=== PATIENT | female | born 1990 | race Hispanic/Latino ===

== ENCOUNTER 2019-12-04 14:12 | Emergency (ER) | payer MEDICARE ==
[2019-12-04 15:16] LABS: BASOPHILS % (AUTO) 0.3 % (0.0-5.0); HEMATOCRIT 34.7 % (36-48); LYMPHOCYTES % (AUTO) 14.3 % (21.0-51.0); MEAN CORPUSCULAR HEMOGLOBIN 36.2 pg (27.0-33.0); MEAN CORPUSCULAR HGB CONC 35.4 g/dL (32.0-36.0); MEAN CORPUSCULAR VOLUME 102.1 fL (79-99); MONOCYTES % (AUTO) 3.1 % (3.0-13.0); PLATELET COUNT (AUTO) 111 K/uL (130-400); RED CELL DISTRIBUTION WIDTH 11.4 % (11.0-15.5); WHITE BLOOD COUNT (AUTO) 6.2 K/uL (4.8-10.8)
[2019-12-04 15:29] LABS: CREATININE 0.7 mg/dL (0.5-1.5); POTASSIUM 3.1 mmol/L (3.5-5.1)
[2019-12-04 15:33] LABS: ALBUMIN 3.3 g/dL (3.5-5.0); BILIRUBIN,TOTAL 0.3 mg/dL (0.2-1.0); TOTAL PROTEIN, SERUM 7.5 g/dL (6.0-8.3)
[2019-12-04 16:22] LABS: APPEARANCE,URINE Clear (CLEAR); BILIRUBIN,URINE Negative (NEGATIVE); COLOR,URINE Yellow (YELLOW); GLUCOSE, URINE (UA) Negative (NEGATIVE); KETONES,URINE Negative (NEGATIVE); LEUKOCYTE ESTERASE ,URINE Negative (NEGATIVE); NITRATE,URINE Negative (NEGATIVE); OCCULT BLOOD,URINE Moderate (NEGATIVE); PH,URINE 5.5 (5.0-8.0); PROTEIN,URINE Negative (NEGATIVE); UROBILINOGEN,URINE 0.2 mg/dL (0.2-1.0)
[2019-12-04 16:25] LABS: HCG,QUAL RESULT NEGATIVE (NEGATIVE)
[2019-12-04] MEDS ORDERED: IBUPROFEN 600 MG TABLET ONE (16:37)
[2019-12-04 16:39] LABS: BACTERIA,URINE Rare /HPF (None Seen); WBC,URINE 0-1 /HPF (0-1)
[2019-12-04 16:40] LABS: SQUAMOUS EPITHELIAL CELL,UR Rare /HPF (0-2)
[2019-12-04] MEDS ORDERED: POTASSIUM BICARB/CIT AC 25 MEQ TABLET.EFF ONE (17:12)
[2019-12-04] MEDS ORDERED: DOXYCYCLINE HYCLATE 100 MG TABLET PO ONE (19:06)
== END 2019-12-04 19:24 | disposition home or self-care (01) ==
LOC: EDH 14:12
DX: E87.6 Hypokalemia (principal); R50.9 Fever, unspecified; R05 Cough; E86.0 Dehydration; Z20.828 Contact with and (suspected) exposure to other viral communicable diseases; F31.9 Bipolar disorder, unspecified; Z72.0 Tobacco use
CPT/HCPCS: 36415; 71045; 80053; 81001; 81025; 85025; 86757; 87426; 87804 ×2; 96360; 99284; J7030; U0003

== ENCOUNTER 2021-09-16 11:00 | Emergency (ER) | payer MEDICARE ==
[~2021-09-16] VITALS: Ht 149.9 cm; Wt 68.0 kg
[2021-09-16 11:02] VITALS: BP 126/68
[2021-09-16] MEDS ORDERED: CORTSOL AD (12:39)
[2021-09-16] MEDS ORDERED: IBUP-2070 PO (12:39)
[2021-09-16] MEDS ORDERED: IBUPROFEN 600 MG TABLET PO ONE (13:00)
== END 2021-09-16 12:49 | disposition home or self-care (01) ==
LOC: EDH 11:00
DX: H60.91 Unspecified otitis externa, right ear (principal); F32.A Depression, unspecified; E03.9 Hypothyroidism, unspecified; F41.9 Anxiety disorder, unspecified

== ENCOUNTER 2021-10-04 22:20 | Emergency (ER) | payer MEDICARE ==
[~2021-10-04] VITALS: Ht 149.9 cm; Wt 70.8 kg
[~2021-10-04 22:20] MED LIST: CORTSOL AD; IBUP-2070 PO
[2021-10-04 22:38] LABS: BASOPHILS % (AUTO) 0.3 % (0.0-5.0); EOSINOPHILS % (AUTO) 0.4 % (0.0-8.0); HEMATOCRIT 34.3 % (36-48); LYMPHOCYTES % (AUTO) 30.8 % (21.0-51.0); MEAN CORPUSCULAR HEMOGLOBIN 36.8 pg (27.0-33.0); MEAN CORPUSCULAR HGB CONC 36.2 g/dL (32.0-36.0); MEAN CORPUSCULAR VOLUME 101.8 fL (79-99); MONOCYTES % (AUTO) 7.5 % (3.0-13.0); NEUTROPHILS % (AUTO) 60.6 % (40.0-77.0); PLATELET COUNT (AUTO) 186 K/uL (130-400); RED BLOOD CELL COUNT(AUTO) 3.37 MIL/uL (4.00-5.50); RED CELL DISTRIBUTION WIDTH 11.9 % (11.0-15.5); WHITE BLOOD COUNT (AUTO) 9.1 K/uL (4.8-10.8)
[2021-10-04 22:52] LABS: CARBON DIOXIDE 21 mmol/L (21-32); CHLORIDE 103 mmol/L (101-111); CREATININE 0.6 mg/dL (0.5-1.5); GLOMERULAR FILTR. RATE CALC 122 mL/min (>60); GLUCOSE,RANDOM 86 mg/dL (70-105); POTASSIUM 3.2 mmol/L (3.5-5.1); SODIUM SERUM 135 mmol/L (136-145); UREA NITROGEN, BLOOD 8 mg/dL (7-18)
[2021-10-04 22:54] LABS: ACETAMINOPHEN 4 mcg/mL (10-30); ALANINE AMINOTRANSFERASE 13 U/L (12-78); ALBUMIN 3.8 g/dL (3.5-5.0); ALCOHOL, BLOOD < 3 mg/dL (0-10); ASPARTATE AMINOTRANSFERASE 13 U/L (10-37); TOTAL PROTEIN, SERUM 7.6 g/dL (6.0-8.3)
[2021-10-04 23:01] LABS: BILIRUBIN,URINE SMALL (NEGATIVE); COLOR,URINE YELLOW (YELLOW); GLUCOSE, URINE (UA) NEGATIVE (NEGATIVE); KETONES,URINE 15 mg/dL (NEGATIVE); LEUKOCYTE ESTERASE ,URINE NEGATIVE (NEGATIVE); NITRATE,URINE NEGATIVE (NEGATIVE); OCCULT BLOOD,URINE MODERATE (NEGATIVE); PROTEIN,URINE NEGATIVE (NEGATIVE); UROBILINOGEN,URINE 0.2 mg/dL (0.2-1.0)
[2021-10-04 23:05] LABS: APPEARANCE,URINE HAZY (CLEAR)
[2021-10-04 23:06] LABS: WBC,URINE 0-1 /HPF (0-1)
[2021-10-04 23:07] LABS: BACTERIA,URINE Few /HPF (None Seen); CALCIUM OXALATE CRYSTALS,UR Moderate /LPF (None Seen); MUCUS,URINE Few LPF (None Seen)
[2021-10-04 23:09] LABS: AMPHET/METH SCREEN,URINE NEGATIVE (NEGATIVE); BARBITURATE SCREEN, URINE NEGATIVE (NEGATIVE); BENZODIAZEPINES SCREEN,URINE NEGATIVE (NEGATIVE); CANNABINOID SCREEN,URINE POSITIVE (NEGATIVE); COCAINE SCREEN,URINE NEGATIVE (NEGATIVE); OPIATE SCREEN,URINE NEGATIVE (NEGATIVE); PHENCYCLIDINE SCREEN,URINE NEGATIVE (NEGATIVE)
[2021-10-05 02:02] VITALS: BP 128/72
== END 2021-10-05 02:18 | disposition home or self-care (01) ==
LOC: EDH 22:20
DX: F32.9 Major depressive disorder, single episode, unspecified (principal); F17.210 Nicotine dependence, cigarettes, uncomplicated; Z79.1 Long term (current) use of non-steroidal anti-inflammatories (NSAID)
CPT/HCPCS: 99283; 80053; 80305; 84703; 85025; 81001; 36415; G0481

== ENCOUNTER 2022-05-21 18:02 | Emergency (ER) | payer MEDICARE ==
[~2022-05-21] VITALS: Ht 149.9 cm; Wt 77.1 kg
[2022-05-21 18:30] VITALS: BP 146/84
== END 2022-05-21 20:46 | disposition left against medical advice (07) ==
LOC: EDH 18:02
DX: R10.2 Pelvic and perineal pain (principal); Z53.21 Procedure and treatment not carried out due to patient leaving prior to being seen by health care provider
CPT/HCPCS: 99281

== ENCOUNTER 2022-10-11 14:54 | Emergency (ER) | payer MEDICARE ==
[~2022-10-11] VITALS: Ht 152.4 cm; Wt 72.6 kg
[2022-10-11 15:32] LABS: BASOPHILS # (AUTO) 0.03 K/uL (0.00-0.20); BASOPHILS % (AUTO) 0.3 % (0.0-5.0); EOSINOPHILS # (AUTO) 0.02 K/uL (0.00-0.70); EOSINOPHILS % (AUTO) 0.2 % (0.0-8.0); HEMATOCRIT 37.6 % (36-48); IMMATURE GRANULOCYTE ABSOLUTE 0.05 K/uL (0-1); LYMPHOCYTES % (AUTO) 19.4 % (21.0-51.0); MEAN CORPUSCULAR HEMOGLOBIN 36.6 pg (27.0-33.0); MEAN CORPUSCULAR HGB CONC 36.4 g/dL (32.0-36.0); MEAN CORPUSCULAR VOLUME 100.5 fL (79-99); MONOCYTES # (AUTO) 0.9 K/uL (0.1-1.0); MONOCYTES % (AUTO) 8.3 % (3.0-13.0); NEUTROPHILS # (AUTO) 7.4 K/uL (1.8-7.7); NEUTROPHILS % (AUTO) 71.3 % (40.0-77.0); PLATELET COUNT (AUTO) 231 K/uL (130-400); RED BLOOD CELL COUNT(AUTO) 3.74 MIL/uL (4.00-5.50); WHITE BLOOD COUNT (AUTO) 10.3 K/uL (4.8-10.8)
[2022-10-11 15:47] LABS: BILIRUBIN,TOTAL 0.4 mg/dL (0.2-1.0); CREATININE 0.8 mg/dL (0.5-1.5)
[2022-10-11 15:48] LABS: ALBUMIN 4.2 g/dL (3.5-5.0); TOTAL PROTEIN, SERUM 8.1 g/dL (6.0-8.3)
[2022-10-11 16:15] LABS: POTASSIUM 3.3 mmol/L (3.5-5.1)
[2022-10-11] MEDS ORDERED: ACETAMINOPHEN 500 MG TABLET PO ONE (16:30)
[2022-10-11] MEDS ORDERED: LACTATED RINGERS 1000ML 1,000 ML IV ONE (16:30)
[2022-10-11 19:14] VITALS: BP 118/75; PULSE 76; RESP 18; O2SAT 99
== END 2022-10-11 19:15 | disposition home or self-care (01) ==
LOC: EDH 14:54
DX: R51.9 Headache, unspecified (principal); E03.9 Hypothyroidism, unspecified; X30.XXXA Exposure to excessive natural heat, initial encounter; Y93.G3 Activity, cooking and baking; Y92.89 Other specified places as the place of occurrence of the external cause; Y99.8 Other external cause status
CPT/HCPCS: 99284; 96360; 70450; 82550; 80053; 84703; 85025; 36415; J7120; 96361

== ENCOUNTER 2023-07-16 16:17 | Emergency (ER) | payer MEDICARE ==
[~2023-07-16] VITALS: Ht 149.9 cm; Wt 71.2 kg
[2023-07-16] MEDS: MORPHINE 2 MG SYG IVP STA (17:03)
[2023-07-16] MEDS: ONDANSETRON 4MG INJ IVP STA (17:03)
[2023-07-16 17:04] LABS: BASOPHILS # (AUTO) 0.04 K/uL (0.00-0.20); BASOPHILS % (AUTO) 0.6 % (0.0-5.0); EOSINOPHILS # (AUTO) 0.06 K/uL (0.00-0.70); EOSINOPHILS % (AUTO) 0.9 % (0.0-8.0); IMMATURE GRANULOCYTE ABSOLUTE 0.08 K/uL (0-1); LYMPHOCYTES # (AUTO) 1.9 K/uL (1.0-4.8); LYMPHOCYTES % (AUTO) 27.2 % (21.0-51.0); MEAN CORPUSCULAR HEMOGLOBIN 37.9 pg (27.0-33.0); MEAN CORPUSCULAR HGB CONC 36.6 g/dL (32.0-36.0); MEAN CORPUSCULAR VOLUME 103.5 fL (79-99); MONOCYTES # (AUTO) 0.6 K/uL (0.1-1.0); NEUTROPHILS # (AUTO) 4.3 K/uL (1.8-7.7); NEUTROPHILS % (AUTO) 62.2 % (40.0-77.0); PLATELET COUNT (AUTO) 191 K/uL (130-400); RED BLOOD CELL COUNT(AUTO) 3.67 MIL/uL (4.00-5.50); RED CELL DISTRIBUTION WIDTH 12.4 % (11.0-15.5)
[2023-07-16 17:09] LABS: APPEARANCE,URINE CLEAR (CLEAR); BILIRUBIN,URINE NEGATIVE (NEGATIVE); COLOR,URINE COLORLESS (YELLOW); GLUCOSE, URINE (UA) NEGATIVE (NEGATIVE); KETONES,URINE NEGATIVE (NEGATIVE); LEUKOCYTE ESTERASE ,URINE NEGATIVE Leu/uL (NEGATIVE); NITRATE,URINE NEGATIVE (NEGATIVE); OCCULT BLOOD,URINE SMALL (NEGATIVE); PROTEIN,URINE NEGATIVE (NEGATIVE); UROBILINOGEN,URINE 0.2 mg/dL (0.2-1.0)
[2023-07-16 17:11] VITALS: BP 128/72; PULSE 90; RESP 16; O2SAT 100
[2023-07-16 17:12] LABS: ADD UA MICROSCOPIC YES
[2023-07-16 17:21] LABS: BACTERIA,URINE Few /HPF (None Seen); RBC,URINE 0-1 /HPF (0-1); RED BLOOD CELL CLUMP None Seen /HPF; WBC CLUMP None Seen /HPF (0-1)
[2023-07-16 17:39] LABS: ALBUMIN 3.5 g/dL (3.5-5.0); BILIRUBIN,TOTAL 0.3 mg/dL (0.2-1.0); CREATININE 0.6 mg/dL (0.5-1.0); TOTAL PROTEIN, SERUM 7.3 g/dL (6.0-8.3)
[2023-07-16 17:40] LABS: POTASSIUM 4.2 mmol/L (3.5-5.1)
[2023-07-16 17:44] LABS: COVID19 (SARS ANTIGEN RAPID) PRESUMPTIVE NEGATIVE (NEGATIVE)
[2023-07-16 17:47] LABS: INFLUENZA TYPE A NEGATIVE FOR TYPE A (NEG); INFLUENZA TYPE B NEGATIVE FOR TYPE B (NEG)
[2023-07-16] MEDS: 0.9%NACL 1000ML 1,000 ML IV SCH (17:56)
[2023-07-16] MEDS ORDERED: IBUP-2077 PO (18:04)
[2023-07-16] MEDS ORDERED: SULF1TAB42 PO (18:04)
== END 2023-07-16 18:51 | disposition home or self-care (01) ==
LOC: EDH 16:17
DX: N39.0 Urinary tract infection, site not specified (principal); E03.9 Hypothyroidism, unspecified; Z20.822 Contact with and (suspected) exposure to COVID-19; Z79.899 Other long term (current) drug therapy
CPT/HCPCS: 99285; 96374; 71045; 96375; 87426; 84484; 80053; 84702; 83690; 85025; 87804 ×2; 81001; 36415; 93005; J2270; J7030; J2405

== ENCOUNTER 2023-11-17 15:07 | Emergency (ER) | payer OTHER, MEDICARE ==
[~2023-11-17] VITALS: Ht 152.4 cm; Wt 68.5 kg
[~2023-11-17 15:07] MED LIST changes: +IBUP-2077 PO; +SULF1TAB42 PO
[2023-11-17 16:24] LABS: BASOPHILS # (AUTO) 0.05 K/uL (0.00-0.20); BASOPHILS % (AUTO) 0.5 % (0.0-5.0); EOSINOPHILS # (AUTO) 0.17 K/uL (0.00-0.70); EOSINOPHILS % (AUTO) 1.8 % (0.0-8.0); HEMATOCRIT 36.3 % (36-48); IMMATURE GRANULOCYTE ABSOLUTE 0.04 K/uL (0-1); LYMPHOCYTES # (AUTO) 2.2 K/uL (1.0-4.8); LYMPHOCYTES % (AUTO) 23.8 % (21.0-51.0); MEAN CORPUSCULAR HEMOGLOBIN 36.9 pg (27.0-33.0); MEAN CORPUSCULAR HGB CONC 36.1 g/dL (32.0-36.0); MEAN CORPUSCULAR VOLUME 102.3 fL (79-99); MONOCYTES # (AUTO) 0.8 K/uL (0.1-1.0); MONOCYTES % (AUTO) 8.3 % (3.0-13.0); NEUTROPHILS % (AUTO) 65.2 % (40.0-77.0); PLATELET COUNT (AUTO) 217 K/uL (130-400); RED BLOOD CELL COUNT(AUTO) 3.55 MIL/uL (4.00-5.50); RED CELL DISTRIBUTION WIDTH 11.7 % (11.0-15.5); WHITE BLOOD COUNT (AUTO) 9.3 K/uL (4.8-10.8)
[2023-11-17 16:33] LABS: CREATININE 0.7 mg/dL (0.5-1.0); POTASSIUM 3.5 mmol/L (3.5-5.1)
[2023-11-17] MEDS ORDERED: LIDO28CR2 TP (16:50)
[2023-11-17 17:18] VITALS: BP 154/69; PULSE 85; RESP 16; TEMP 97.8; O2SAT 97
== END 2023-11-17 17:19 | disposition home or self-care (01) ==
LOC: EDH 15:07
DX: K64.4 Residual hemorrhoidal skin tags (principal); E03.9 Hypothyroidism, unspecified; F31.9 Bipolar disorder, unspecified; F41.9 Anxiety disorder, unspecified
CPT/HCPCS: 36415; 80048; 85025

== ENCOUNTER 2024-03-02 09:28 | Emergency (ER) | payer OTHER, MEDICARE ==
[~2024-03-02] VITALS: Ht 149.9 cm; Wt 70.3 kg
[~2024-03-02 09:28] MED LIST changes: +LIDO28CR2 TP
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
[2024-03-02] MEDS ORDERED: LIDOCAINE HCL 1% 20 ML VIAL INJ SCH (10:30)
--- NOTE | 2024-03-02 10:30 | HMCIMG ---
KNEE 3VWS RT HISTORY: Right knee injury COMPARISON: None TECHNIQUE: 4 images of right knee were obtained. FINDINGS: There is no acute displaced fracture or dislocation. IMPRESSION: 1. Findings as described above.
[2024-03-02] MEDS: NEOMY SULF/BACITRA/POLYMYXIN B 1 EACH PACKET TP ONE (10:33)
[2024-03-02] MEDS: ibuPROFEN 800 MG TAB PO ONE (10:33)
[2024-03-02] MEDS: LIDOCAINE HCL 1% 20 ML VIAL INJ SCH (10:47)
[2024-03-02 10:49] VITALS: BP 125/72; PULSE 90; RESP 16; TEMP 98.8; O2SAT 99
[2024-03-02] MEDS ORDERED: IBUP-2077 PO (10:53)
== END 2024-03-02 11:25 | disposition home or self-care (01) ==
LOC: EDH 09:28
DX: S91.342A Puncture wound with foreign body, left foot, initial encounter (principal); S83.8X1A Sprain of other specified parts of right knee, initial encounter; E03.9 Hypothyroidism, unspecified; F31.9 Bipolar disorder, unspecified; Z79.899 Other long term (current) drug therapy; X58.XXXA Exposure to other specified factors, initial encounter; Y93.89 Activity, other specified; Y92.89 Other specified places as the place of occurrence of the external cause; Y99.8 Other external cause status
CPT/HCPCS: 73562; 99284

== ENCOUNTER 2024-07-29 14:48 | Emergency (ER) | payer MEDICARE ==
[~2024-07-29] VITALS: Ht 152.4 cm; Wt 68.0 kg
--- NOTE | 2024-07-29 15:44 | HMCIMG ---
Exam Type: US PELVIC NON-OB COMP Clinical Information: pain Comparison: None Findings: Uterus is anteverted with the anterior fundal fibroids measuring 12, 13 and 15 mm respectively. The endometrial lining is normal in thickness. No intrauterine or ectopic seen. The ovaries are normal in size and echogenicity. Vascular Doppler flow exam and spectral analysis of waveforms analysis is unremarkable bilaterally. There is preserved vascularity to both ovaries on Doppler evaluation. Specifically, there is no evidence of ovarian torsion. No free fluid is noted throughout the cul-de-sac. There are no adnexal abnormalities. No other significant abnormalities are seen. No fluid collections or masses or free fluid are identified in the pelvis. Impression: Uterine fibroids. Otherwise normal.
[2024-07-29 16:41] LABS: BASOPHILS # (AUTO) 0.08 K/uL (0.00-0.20); BASOPHILS % (AUTO) 0.7 % (0.0-5.0); EOSINOPHILS % (AUTO) 2.6 % (0.0-8.0); HEMATOCRIT 41.2 % (36-48); IMMATURE GRANULOCYTE ABSOLUTE 0.07 K/uL (0-1); LYMPHOCYTES # (AUTO) 2.9 K/uL (1.0-4.8); LYMPHOCYTES % (AUTO) 25.5 % (21.0-51.0); MEAN CORPUSCULAR HEMOGLOBIN 36.9 pg (27.0-33.0); MEAN CORPUSCULAR HGB CONC 34.2 g/dL (32.0-36.0); MEAN CORPUSCULAR VOLUME 107.9 fL (79-99); MONOCYTES # (AUTO) 0.6 K/uL (0.1-1.0); MONOCYTES % (AUTO) 5.1 % (3.0-13.0); NEUTROPHILS # (AUTO) 7.5 K/uL (1.8-7.7); NEUTROPHILS % (AUTO) 65.5 % (40.0-77.0); PLATELET COUNT (AUTO) 197 K/uL (130-400); RED BLOOD CELL COUNT(AUTO) 3.82 MIL/uL (4.00-5.50); RED CELL DISTRIBUTION WIDTH 11.9 % (11.0-15.5); WHITE BLOOD COUNT (AUTO) 11.4 K/uL (4.8-10.8)
[2024-07-29 16:49] LABS: CREATININE 0.6 mg/dL (0.5-1.0); POTASSIUM 4.6 mmol/L (3.5-5.1)
[2024-07-29 16:52] LABS: APPEARANCE,URINE CLEAR (CLEAR); BILIRUBIN,URINE NEGATIVE (NEGATIVE); COLOR,URINE COLORLESS (YELLOW); GLUCOSE, URINE (UA) NEGATIVE (NEGATIVE); KETONES,URINE NEGATIVE (NEGATIVE); LEUKOCYTE ESTERASE ,URINE NEGATIVE Leu/uL (NEGATIVE); NITRATE,URINE NEGATIVE (NEGATIVE); OCCULT BLOOD,URINE SMALL (NEGATIVE); PROTEIN,URINE NEGATIVE (NEGATIVE); UROBILINOGEN,URINE 0.2 mg/dL (0.2-1.0)
[2024-07-29 16:56] LABS: HCG,QUALITATIVE URINE NEGATIVE (NEGATIVE)
[2024-07-29 16:58] LABS: BACTERIA,URINE RARE /HPF (None Seen); MUCUS,URINE RARE LPF (None Seen); SQUAMOUS EPITHELIAL CELL,UR RARE /HPF (0-2); WBC,URINE 0-1 /HPF (0-1)
[2024-07-29] MEDS: morPHINE 2 MG SYG IM SCH (17:35)
--- NOTE | 2024-07-29 17:47 | ERN ---
General Chief Complaint: Pelvic Pain Stated Complaint: ENDO FLARE UP IN OVARIES/ NAUSEOUS/DIZZY Time Seen by MD: 14:53 Time Seen by Midlevel: 14:53 Source: patient History of Present Illness Initial Comments 34-year-old female who presents to the emergency department due to pelvic pain onset two days. Patient reports nausea but denies any vomiting, dysuria, fever, vaginal bleeding or further associated symptoms. Patient has a follow up appointment with OBGYN but states she was unable to weight due to the pain. PMHx endometriosis, depression, anxiety, bipolar, hypothyroidism. Allergies: Coded Allergies: No Known Drug Allergies (Unverified Allergy, Unknown, 09/16/21) Home Meds Active Scripts Ibuprofen (Ibuprofen 800 mg Tab) 800 Mg Tab, 800 MG PO Q8H PRN for fever or pain, #30 TAB 0 Refills Prov:VITA JAIMES NP 03/02/24 Lidocaine/Phenyl/Glycer/Petrol (Preparation H Rapid-Lido Cream) 5 %-0.25 %-14.4 %-15 % Cream..g., 28 GM TP BID, #28 GM Prov:MAGED RAHMAN MD 11/17/23 Ibuprofen (Ibuprofen 800 mg Tab) 800 Mg Tab, 800 MG PO Q6H PRN for PAIN, #12 TAB Prov:ISAAC CARPIO 07/16/23 Sulfamethoxazole/Trimethoprim (Bactrim Ds Tablet) 800 Mg-160 Mg Tablet, 1 TAB PO BID for 7 Days, #14 TAB 0 Refills Prov:ISAAC CARPIO 07/16/23 Ibuprofen (Ibuprofen) 600 Mg Tablet, 600 MG PO Q6H PRN for PAIN, #15 TAB Prov:REBA ENG 09/16/21 Neomy Sulf/Polymyx B Sulf/Hc (Cortisporin Otic Soln) 20 Drop/Ml Otsol, 4 DROP AD QID, #7.5 ML Prov:REBA ENG 09/16/21 Past Medical History Past Medical History: Anxiety, Bipolar, Depression, Endometriosis, Hypothyroid Medical History Other: HYPOTHYROID Past Surgical History: None Family History Family History: Negative Social History Social History: Negative, Other Female( History) History: Not Applicable LMP: July 20, 2024 : 0 Para: 0 Aborts: 0 ROS Dictation Constitutional: Negative for fever,chills, and weight loss Eyes: Negative for injury, pain,redness, and discharge ENT: Negative for injury,pain or swelling Cardiovascular: Negative for chest pain, palpitations, and edema Respiratory: Negative for shortness of breath, cough, and wheezing, Abdomen/GI: Positive for pelvic pain, nausea Negative for abdominal pain, vomiting, diarrhea, and constipation Back: Negative for injury and pain : Negative for painful urination, bleeding or discharge MS/Extremity: Negative for injury and deformity Skin: Negative for rash, and discoloration Neuro: Negative for headache, weakness, numbness, tingling, and seizure Psych: Negative for suicide ideation, homicidal ideation, and hallucinations Physical Exam Physical Exam Dictation General: awake, alert, no acute distress Head/Face: Normocephalic, atraumatic Eyes: PERRL, EOMI, normal conjunctiva ENT: oral cavity clear, oral mucosa moist Neck: Supple, normal range of motion Cardiovascular: RRR, normal S1/S2 Respiratory: CTAB, no respiratory distress, no rales or wheezes Abdomen: Soft, mild suprapubic tenderness, non-distended, no guarding or rebound. Skin: Warm, dry, normal turgor, no rash MS/Extremity: Pulses equal, no cyanosis, neurovascular intact, FROM Neuro: COAx4, GCS 15, strength 5/5, CN 2-12 intact, normal cerebellar exam, normal gait Psych: Normal behavior, mood, and affect normal Results Laboratory and Microbiology Lab and Micro Result Laboratory Tests Test 07/29/24 16:35 07/29/24 16:43 White Blood Count 11.4 K/uL (4.8-10.8) H Red Blood Count 3.82 MIL/uL (4.00-5.50) L Hemoglobin 14.1 g/dL (12.0-16.0) Hematocrit 41.2 % (36-48) Mean Corpuscular Volume 107.9 fL (79-99) H Mean Corpuscular Hemoglobin 36.9 pg (27.0-33.0) H Mean Corpuscular Hemoglobin Concent 34.2 g/dL (32.0-36.0) Red Cell Distribution Width 11.9 % (11.0-15.5) Platelet Count 197 K/uL (130-400) Mean Platelet Volume 9.9 fL (7.5-10.5) Immature Granulocyte % (Auto) 0.6 % (0-1) Neutrophils (%) (Auto) 65.5 % (40.0-77.0) Lymphocytes (%) (Auto) 25.5 % (21.0-51.0) Monocytes (%) (Auto) 5.1 % (3.0-13.0) Eosinophils (%) (Auto) 2.6 % (0.0-8.0) Basophils (%) (Auto) 0.7 % (0.0-5.0) Neutrophils # (Auto) 7.5 K/uL (1.8-7.7) Lymphocytes # (Auto) 2.9 K/uL (1.0-4.8) Monocytes # (Auto) 0.6 K/uL (0.1-1.0) Eosinophils # (Auto) 0.30 K/uL (0.00-0.70) Basophils # (Auto) 0.08 K/uL (0.00-0.20) Absolute Immature Granulocyte (auto 0.07 K/uL (0-1) Nucleated Red Blood Cells 0.0 % (0.0-0.19) Red Blood Cell Morphology See comments Sodium Level 137 mmol/L (136-145) Potassium Level 4.6 mmol/L (3.5-5.1) Chloride Level 103 mmol/L (101-111) Carbon Dioxide Level 25 mmol/L (21-32) Blood Urea Nitrogen 8 mg/dL (7-18) Creatinine 0.6 mg/dL (0.5-1.0) Glomerular Filtration Rate Calc 119 mL/min (>90) Random Glucose 96 mg/dL (70-105) Total Calcium 8.9 mg/dL (8.5-10.1) Urine Color COLORLESS (YELLOW) Urine Appearance CLEAR (CLEAR) Urine pH 5.0 (5.0-8.0) Urine Specific [place] 1.010 (1.001-1.031) Urine Protein NEGATIVE mg/dL (NEGATIVE) Urine Glucose (UA) NEGATIVE mg/dL (NEGATIVE) Urine Ketones NEGATIVE mg/dL (NEGATIVE) Urine Occult Blood SMALL (NEGATIVE) H Urine Nitrate NEGATIVE (NEGATIVE) Urine Bilirubin NEGATIVE mg/dL (NEGATIVE) Urine Urobilinogen 0.2 mg/dL (0.2-1.0) Urine Leukocyte Esterase NEGATIVE Anna/uL Urine RBC 2-5 /HPF (0-1) H Urine WBC 0-1 /HPF (0-1) Urine Squamous Epithelial Cells RARE /HPF (0-2) Urine Bacteria RARE /HPF (None Seen) Urine HCG, Qualitative NEGATIVE (NEGATIVE) Labs Reviewed?: Yes EKG/XRAY/US/CT/MRI Ultrasound Comment REASON: pain ORDERING PHYSICIAN: DEANNA MOORE PROCEDURE: PELVCOMP - US PELVIC NON-OB COMP Exam Type: US PELVIC NON-OB COMP Clinical Information: pain Comparison: None Findings: Uterus is anteverted with the anterior fundal fibroids measuring 12, 13 and 15 mm respectively. The endometrial lining is normal in thickness. No intrauterine or ectopic seen. The ovaries are normal in size and echogenicity. Vascular Doppler flow exam and spectral analysis of waveforms analysis is unremarkable bilaterally. There is preserved vascularity to both ovaries on Doppler evaluation. Specifically, there is no evidence of ovarian torsion. No free fluid is noted throughout the cul-de-sac. There are no adnexal abnormalities. No other significant abnormalities are seen. No fluid collections or masses or free fluid are identified in the pelvis. Impression: Uterine fibroids. Otherwise normal. DICTATED BY: ESTELLE SOW MD DATE: 07/29/24 1541 MDM MDM: Differential diagnosis: Rationale: 34-year-old female who presents to the emergency department due to pelvic pain onset two days. Patient reports nausea but denies any vomiting, dysuria, fever, vaginal bleeding or further associated symptoms. Patient has a follow up appointment with OBGYN but states she was unable to weight due to the pain. PMHx endometriosis, depression, anxiety, bipolar, hypothyroidism. Labs obtained indicate mild WBC elevation of 11.4 otherwise CBC nonspecific, chemistry within normal limits, UA negative for urinary tract infection and . Morphine administered in the ED. On re-examination patient verbalized pain had improved and patient appears more comfortable. Patient was educated on findings, and diagnosis. Advised to follow up with PCP. Return to the emergency department if any worsening symptoms. Patient verbalized understanding. Patient stable for discharge. There are no social concerns with this patient. I independently interpreted the test that were performed, results were reviewed by me and considered findings on radiology if ordered. Medical management and examination interpretation discussions were had by me with other qualified healthcare professionals as indicated for the patient's care. ED Course Orders Procedure Category Date Status Time Cbc With Differential LAB 07/29/24 Complete 15:15 Basic Metabolic Panel LAB 07/29/24 Complete 15:15 Urinalysis LAB 07/29/24 Complete W/Microscopic 15:15 ,Urine Test LAB 07/29/24 Complete 15:15 Us Pelvic Non-Ob Comp US 07/29/24 Resulted 15:15 Morphine 2mg Syg PHA 07/29/24 Complete (Morphine 2mg Syg) 17:00 Current Medications Medications (Trade) Dose Ordered Sig/Yariel Route PRN Reason Start Time Stop Time Status Last Admin Dose Admin Morphine Sulfate (morPHINE 2MG SYG) 2 mg ONCE IM 07/29/24 17:00 07/29/24 18:28 DC 07/29/24 17:35 Vital Signs Date Time Temp Pulse Resp B/P (MAP) Pulse Ox O2 Delivery O2 Flow Rate FiO2 07/29/24 18:18 98.4 56 16 135/78 100 Room Air* 0 21 07/29/24 14:54 97.9 56 16 132/75 100 Room Air 0 07/29/24 14:54 97.9 56 16 132/75 100 Room Air* 0 21 DX & DISP Disposition: Discharge Departure Impression: Primary Impression: Pelvic pain Additional Impression: Uterine fibroid Condition: Stable Additional Instructions: Discharge home. Rest. Follow up with primary care DrSuri in 24 hours. Return to the ER for any acute changes or worsening symptoms. If any medications were prescribed take as directed. Okay to continue home medications unless otherwise discussed during your visit in the emergency room today. Patient was also advised to follow-up with primary care physician in 1 to 2 days for continued monitoring. Referrals: TOMA RAMOS [employer] RECEIVING CLERK (PCP) I performed the substantive portion of the visit. I have reviewed and personally made and approve the management plan that is documented in the notes by myself or the ALBERT. I acknowledge full responsibility for the patient's management plan. DEANNA MOORE July 29, 2024 17:47
[2024-07-29 18:18] VITALS: BP 135/78; PULSE 56; RESP 16; TEMP 98.4; O2SAT 100
== END 2024-07-29 18:25 | disposition home or self-care (01) ==
LOC: EDH 14:48
DX: R10.2 Pelvic and perineal pain (principal); D25.9 Leiomyoma of uterus, unspecified; E03.9 Hypothyroidism, unspecified; F31.9 Bipolar disorder, unspecified; Z79.899 Other long term (current) drug therapy
CPT/HCPCS: 99285; 76856; 80048; 85025; 81001; 81025; 36415; 96372; J2270

== ENCOUNTER 2025-02-07 14:38 | Emergency (ER) | payer MEDICARE ==
[~2025-02-07] VITALS: Ht 152.4 cm; Wt 64.0 kg
[~2025-02-07 14:38] MED LIST changes: +IBUP-1492 PO; -IBUP-2070 PO
[2025-02-07 14:39] VITALS: TEMP 97.4
[2025-02-07 15:13] LABS: IMMATURE GRANULOCYTE ABSOLUTE 0.07 K/uL (0-1); NUCLEATED RED BLOOD CELLS 0.0 % (0.0-0.19); PLATELET COUNT (AUTO) 244 K/uL (130-400); RED BLOOD CELL COUNT(AUTO) 4.20 MIL/uL (4.00-5.50); RED CELL DISTRIBUTION WIDTH 11.6 % (11.0-15.5); WHITE BLOOD COUNT (AUTO) 9.6 K/uL (4.8-10.8)
[2025-02-07 15:24] LABS: CREATININE 0.6 mg/dL (0.5-1.0); GLOMERULAR FILTR. RATE CALC 119.0 mL/min (>90); GLUCOSE,RANDOM 91.0 mg/dL (70-105); SODIUM SERUM 135.0 mmol/L (136-145); UREA NITROGEN, BLOOD 11.0 mg/dL (7-18)
[2025-02-07 15:33] LABS: ASPARTATE AMINOTRANSFERASE 13.0 U/L (10-37); TOTAL PROTEIN, SERUM 9.1 g/dL (6.0-8.3)
[2025-02-07 15:38] LABS: APPEARANCE,URINE CLEAR (CLEAR); GLUCOSE, URINE (UA) NEGATIVE (NEGATIVE); LEUKOCYTE ESTERASE ,URINE NEGATIVE Leu/uL (NEGATIVE); NITRATE,URINE NEGATIVE (NEGATIVE); OCCULT BLOOD,URINE MODERATE (NEGATIVE)
[2025-02-07 15:42] LABS: ADD UA MICROSCOPIC YES
[2025-02-07 15:47] LABS: SQUAMOUS EPITHELIAL CELL,UR Rare /HPF (0-2)
--- NOTE | 2025-02-07 16:48 | HMCIMG ---
EXAM: US Abdomen, Right Upper Quadrant. CLINICAL HISTORY: RUQ abd pain r/o acute cholecystitis TECHNIQUE: Right upper quadrant sonography performed with image documentation. COMPARISON: 04/26/12 FINDINGS: LIVER: Within normal limits in size 12 cms. No mass. The main portal vein demonstrates hepatopetal flow with a velocity of 20 cm per second. GALLBLADDER: The gallbladder appears normal. No gallbladder wall thickening seen. No gallstones are evident. COMMON BILE DUCT: Within normal limits in size measures 5 mm. PANCREAS: The visualized pancreas appears within normal limits. The distal pancreas is obscured by bowel gas. RIGHT KIDNEY: Unremarkable. The right kidney measures 9.7 ??? 4.8 ??? 3.5 cm. Normal renal contours. No renal mass or calculus. No hydronephrosis. IMPRESSION: No acute abnormality /Rogelio
--- NOTE | 2025-02-07 17:01 | ERN ---
General Chief Complaint: Abdominal Pain Stated Complaint: RUQ ABDOMINAL PAIN AND NAUSEA Time Seen by MD: 14:46 Time Seen by Midlevel: 14:46 Source: patient History of Present Illness Initial Comments The patient is a 34-year-old female presenting to the emergency department for evaluation of right upper quadrant abdominal tenderness with associated nausea. No other symptoms reported Allergies: Coded Allergies: No Known Drug Allergies (Unverified Allergy, Unknown, 09/16/21) Home Meds Active Scripts Ibuprofen (Ibuprofen 800 mg Tab) 800 Mg Tab, 800 MG PO Q8H PRN for fever or pain, #30 TAB 0 Refills Prov:VITA JAIMES [facility] 03/02/24 Lidocaine/Phenyl/Glycer/Petrol (Preparation H Rapid-Lido Cream) 5 %-0.25 %-14.4 %-15 % Cream..g., 28 GM TP BID, #28 GM Prov:MAGED RAHMAN MD 11/17/23 Ibuprofen (Ibuprofen 800 mg Tab) 800 Mg Tab, 800 MG PO Q6H PRN for PAIN, #12 TAB Prov:ISAAC CARPIO 07/16/23 Sulfamethoxazole/Trimethoprim (Bactrim Ds Tablet) 800 Mg-160 Mg Tablet, 1 TAB PO BID for 7 Days, #14 TAB 0 Refills Prov:ISAAC CARPIO 07/16/23 Ibuprofen (Ibuprofen) 600 Mg Tablet, 600 MG PO Q6H PRN for PAIN, #15 TAB Prov:REBA ENG [facility] 09/16/21 Neomy Sulf/Polymyx B Sulf/Hc (Cortisporin Otic Soln) 20 Drop/Ml Otsol, 4 DROP AD QID, #7.5 ML Prov:REBA ENG [facility] 09/16/21 Past Medical History Past Medical History: Anxiety, Bipolar, Depression, Endometriosis, Hypothyroid Medical History Other: ENDOMETRIOSIS Past Surgical History: None Family History Family History: Negative Social History Social History: Negative, Other Female( History) History: Not Applicable : 0 Para: 0 Aborts: 0 ROS Dictation CONSTITUTIONAL: Negative except for HPI HEAD/FACE: Negative except for HPI EENT: Negative except for HPI RESPIRATORY: Negative except for HPI GASTROINTESTINAL/ABDOMINAL: Negative except for HPI GENITOURINARY: Negative except for HPI MUSCULOSKELETAL: Negative except for HPI INTEGUMENTARY: Negative except for HPI NEUROLOGICAL/PSYCH: Negative except for HPI HEMATOLOGIC/LYMPHATIC: Negative except for HPI All Systems Negative, Except as noted above. 13 point review of systems assessed and all negative except for above. Physical Exam Physical Exam Dictation Vital Signs reviewed General Appearance: Alert, oriented x 3, no acute distress, well developed, nourished. Head and Face: non-traumatic. Eyes: PERRL, pink conjunctivas, eyelid no trauma, anterior chamber with arcus senilis. Ears: Pinnas intact and no signs of trauma or erythema ear canals clear and no discharge TM no erythema Nose: No discharge, no bleeding. Oropharynx: Mouth normal, tongue pink, pharynx clear,no erythema, tonsils no exudates, no abscesses noted, mucous membrane moist Neck: Supple, non-tender, no thyromegaly, no masses, no JVD, no bruits Breast:Deferred Chest:No tenderness, no crepitus, no paradoxical movement, no retractions Lungs:Clear, well-ventilated, symmetric, no rales, no wheezing, no rhonchi, no stridor, good breath sounds bilaterally Heart: Regular rate, regular rhythm, no murmur, no gallops Vascular: no peripheral edema, Abdomen: Soft, positive bowel sounds, nondistended, no guarding, nontender, no rebound, no masses no hepatomegaly, no splenomegaly, no Sales's sign, no hernias. Rectal: Deferred Genital: Deferred Neurological: Normal speech, motor function intact, sensory function intact Musculoskeletal: Neck nontender, full range of motion, back nontender, full range of motion, Extremities: nontender, full range of motion Skin: Color pink, dry, no turgor, no rash, no lacerations, no abrasions, no contusions. Lymphatic: Deferred Results Laboratory and Microbiology Lab and Micro Result Laboratory Tests Test 02/07/25 15:01 02/07/25 15:05 White Blood Count 9.6 K/uL (4.8-10.8) Red Blood Count 4.20 MIL/uL (4.00-5.50) Hemoglobin 15.6 g/dL (12.0-16.0) Hematocrit 45.0 % (36-48) Mean Corpuscular Volume 107.1 fL (79-99) H Mean Corpuscular Hemoglobin 37.1 pg (27.0-33.0) H Mean Corpuscular Hemoglobin Concent 34.7 g/dL (32.0-36.0) Red Cell Distribution Width 11.6 % (11.0-15.5) Platelet Count 244 K/uL (130-400) Mean Platelet Volume 9.6 fL (7.5-10.5) Immature Granulocyte % (Auto) 0.7 % (0-1) Neutrophils (%) (Auto) 66.0 % (40.0-77.0) Lymphocytes (%) (Auto) 26.7 % (21.0-51.0) Monocytes (%) (Auto) 5.3 % (3.0-13.0) Eosinophils (%) (Auto) 0.6 % (0.0-8.0) Basophils (%) (Auto) 0.7 % (0.0-5.0) Neutrophils # (Auto) 6.3 K/uL (1.8-7.7) Lymphocytes # (Auto) 2.6 K/uL (1.0-4.8) Monocytes # (Auto) 0.5 K/uL (0.1-1.0) Eosinophils # (Auto) 0.06 K/uL (0.00-0.70) Basophils # (Auto) 0.07 K/uL (0.00-0.20) Absolute Immature Granulocyte (auto 0.07 K/uL (0-1) Nucleated Red Blood Cells 0.0 % (0.0-0.19) Red Blood Cell Morphology See comments Sodium Level 135 mmol/L (136-145) L Potassium Level 4.1 mmol/L (3.5-5.1) Chloride Level 102 mmol/L (101-111) Carbon Dioxide Level 22 mmol/L (21-32) Blood Urea Nitrogen 11 mg/dL (7-18) Creatinine 0.6 mg/dL (0.5-1.0) Glomerular Filtration Rate Calc 119 mL/min (>90) Random Glucose 91 mg/dL (70-105) Total Calcium 9.5 mg/dL (8.5-10.1) Total Bilirubin 0.2 mg/dL (0.2-1.0) Aspartate Amino Transf (AST/SGOT) 13 U/L (10-37) Alanine Aminotransferase (ALT/SGPT) 17 U/L (12-78) Alkaline Phosphatase 99 U/L (50-136) Troponin I High Sensitivity < 4 ng/L (4-50) L Total Protein 9.1 g/dL (6.0-8.3) H Albumin 4.6 g/dL (3.5-5.0) Lipase 45 U/L (16-77) Serum Test, Qualitative NEGATIVE (NEGATIVE) Urine Color YELLOW (YELLOW) Urine Appearance CLEAR (CLEAR) Urine pH 5.0 (5.0-8.0) Urine Specific Branch 1.032 (1.001-1.031) Urine Protein NEGATIVE mg/dL (NEGATIVE) Urine Glucose (UA) NEGATIVE mg/dL (NEGATIVE) Urine Ketones 5 mg/dL (NEGATIVE) H Urine Occult Blood MODERATE (NEGATIVE) H Urine Nitrate NEGATIVE (NEGATIVE) Urine Bilirubin NEGATIVE mg/dL (NEGATIVE) Urine Urobilinogen 0.2 mg/dL (0.2-1.0) Urine Leukocyte Esterase NEGATIVE Anna/uL Urine RBC 2-5 /HPF (0-1) H Urine WBC None Seen /HPF (0-1) Urine Squamous Epithelial Cells Rare /HPF (0-2) Urine Bacteria None Seen /HPF (None Seen) Labs Reviewed?: Yes MDM MDM: Differential diagnosis: Acute cholecystitis, gastritis, GERD, pancreatitis There are no social concerns with this patient. Prescription drug management Prescriptions will include: None Medical management and examination interpretation discussions were had by me with other qualified healthcare professionals as indicated for the patient's care. ED Course Orders Procedure Category Date Status Time Cbc With Differential LAB 02/07/25 Complete 14:46 Comprehensive LAB 02/07/25 Complete Metabolic Panel 14:46 Lipase LAB 02/07/25 Complete 14:46 Testing, LAB 02/07/25 Complete Serum Hcg 14:46 Urinalysis Profile LAB 02/07/25 Complete 14:46 Troponin I High LAB 02/07/25 Complete Sensitivity 14:46 Us Abdominal Ruq\Ltd US 02/07/25 Resulted 14:58 Vital Signs Date Time Temp Pulse Resp B/P (MAP) Pulse Ox O2 Delivery O2 Flow Rate FiO2 02/07/25 14:39 97.3 60 16 134/89 97 Room Air 0 DX & DISP Disposition: Discharge Departure Impression: Primary Impression: Right upper quadrant abdominal pain Condition: Stable Additional Instructions: Your blood work today is unremarkable. Your blood work does not show any evidence of infection. Your liver function tests were normal. Your lipase level was normal. This rules out acute pancreatitis. Your ultrasound shows a normal gallbladder, a normal liver, and a normal right kidney. No signs of infection noted on ultrasound. Your urinalysis does not show any evidence of infection. Your abdominal pain may be related to your history of constipation. Please follow up with your primary care doctor for repeat evaluation. Referrals: TOMA [facility]OS [employer] (PCP) Time of Disposition: 16:59 I have reviewed the case, and I agree with, Diagnosis and Plan I performed the substantive portion of the visit. I have reviewed and personally made and approve the management plan that is documented in the note by myself or the ALBERT. I acknowledge for responsibility for the patient's management plan. JING TREJO PAC Feb 07, 2025 17:01
[2025-02-07 17:05] VITALS: BP 135/86; PULSE 59; RESP 17; O2SAT 96
== END 2025-02-07 17:06 | disposition home or self-care (01) ==
LOC: EDH 14:38
DX: R10.11 Right upper quadrant pain (principal); E03.9 Hypothyroidism, unspecified; F31.9 Bipolar disorder, unspecified; Z79.899 Other long term (current) drug therapy
CPT/HCPCS: 36415; 76705; 80053; 81001; 83690; 84484; 84703; 85025; 99284